=== PATIENT | female | born 2005 | race Two or more races ===

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

== ENCOUNTER 2025-04-20 19:55 | Emergency (ER) | payer MEDICAID, SELFPAY ==
[2025-04-20 19:58] VITALS: BMI 24.4
[2025-04-20 20:08] VITALS: BP 124/79; PULSE 83; RESP 19; TEMP 37.1; O2SAT 99
--- NOTE | 2025-04-20 20:18 | EDNOTE_ITS ---
ED General RME/HPI General Chief complaint: General Adult/Misc Complain Stated complaint: SORE THROAT, RUNNY NOSE, CHEST AREA PAIN Time Seen by Provider: 04/20/25 20:05 Arrival date/time: 04/20/25 19:55 RME / HPI RME / HPI narrative: 20-year-old female presents to the ER after being referred here by her primary doctor to rule out a pulmonary embolism as she has been having pleuritic right sided chest pain and shortness of breath for 3 days. Patient thought that it was related to her working out so she ignored it. Patient is a smoker and endorses that she had a medically induced in February of this year but does not take OCPs currently. Denies any nausea, vomiting, recent travel, surgeries, immobilizations, history of leg swelling or blood clots. Family history: No family history of early cardiac disease Social history: No drugs or alcohol Related Data Previous Rx's ?Medication ?Instructions ?Recorded pantoprazole 40 mg tablet,delayed 40 mg PO QDAY #20 ta bs 12/10/24 release (Protonix) Allergies Allergy/AdvReac Type Severity Reaction Status Date / Time No Known Allergies Allergy Mild NKA Uncoded 12/10/24 13:26 ED Exam Narrative Physical exam: Constitutional: Patient alert and oriented. Well appearing. No acute distress. Not toxic appearing. Head: Normocephalic, atraumatic. Eyes: Periorbital regions bilaterally normal to inspection. Conjunctiva clear bilaterally. Sclera anicteric bilaterally. Pupils equal, round, reactive to light bilaterally. Extraocular movements intact bilaterally. Mouth/Throat: Mucous membranes moist. No stridor or muffled voice. No trismus. Handling secretions without difficulty. Airway widely patent. Neck: Supple. Trachea midline. No JVD. No nuchal rigidity. Normal range of motion. Respiratory: Normal effort. No accessory muscle use or respiratory distress. Lungs clear to auscultation bilaterally without rhonchi, wheezes, or crackles. Positive right posterior axillary line tenderness adjacent to 7,8,9 intercostal spaces. Cardiovascular: RRR. Normal S1/S2. No murmurs or rubs. Radial pulses intact bilaterally. Abdomen: Soft. Non-distended. Non-tender throughout. No pulsatile mass. No guarding or rebound. Negative Redd?s sign. Negative McBurney?s point tenderness. Negative Rovsing?s. Back: No midline tenderness or step-offs. No CVA tenderness to palpation bilaterally. Positive right parathoracic tenderness to palpation. Upper Extremities: No gross deformities. Lower Extremities: No gross deformities. No edema or calf tenderness. Neuro: Speech normal. No gross motor or sensory deficits to upper or lower extremities bilaterally. GCS 15. CN II?XII grossly intact. Skin: Warm, dry, normal color. Psych: Normal affect. Cooperative. Normal insight. Course Quality Measures none Orders Category Date Time Status CT Screening NOW Care 04/20/25 21:49 Active Continuous EKG monitoring NOW Care 04/20/25 20:22 Active Continuous Pulse Oximetry NOW Care 04/20/25 20:22 Active EKG (ED ONLY) *Do not use* NOW Care 04/20/25 20:22 Completed Insert IV NOW Care 04/20/25 21:[address] angio chest Stat Exams 04/20/25 21:49 Completed EKG (ED Only) Stat Exams 04/20/25 20:22 Draft XR chest 2V Stat Exams 04/20/25 20:22 Completed B-Type Natriuretic Peptide Stat Lab 04/20/25 20:45 Completed CBC Stat Lab 04/20/25 20:45 Completed Comprehensive Metabolic Panel Stat Lab 04/20/25 20:45 Completed D-Dimer Stat Lab 04/20/25 20:45 Completed HCG,Qualitative Serum Stat Lab 04/20/25 20:45 Completed Lipase Stat Lab 04/20/25 20:45 Completed Urinalysis Stat Lab 04/20/25 20:49 Completed Ketorolac Inj [Toradol Inj] Med 04/20/25 23:50 Discontinued 30 mg IVP X1 ONE Vital Signs Vital signs: Vital Signs Temperature 98.7 F 04/20/25 20:08 Pulse Rate 83 04/20/25 20:08 Respiratory Rate 19 04/20/25 20:08 Blood Pressure 124/79 04/20/25 20:08 Pulse Oximetry (%) 99 04/20/25 20:08 Oxygen Delivery Method Room Air 04/20/25 20:08 PROCEDURES: EKG Interpretation #1: Date of EK04/21/25 Rate: 87 Interpretation: Interpreted by me EKG Impression: Normal axis Additional EKG comment: QTc 412, incomplete right bundle branch block, no ST elevation, normal sinus rhythm Discharge Plan Plan Patient Disposition: HOME (Self Care) Patient condition on transfer: Stable Prescriptions/Referrals Prescriptions/Med Rec: No Action pantoprazole [Protonix] 40 mg tablet,delayed release (DR/EC) 40 mg PO QDAY Qty: 20 0RF Referrals: Ana M Kellogg NETWORK SECURITY ADMINISTRATOR [Primary Care Provider] - In 1 week Problem List Clinical Impression: Chest pain Patient/Caregiver Discharge Instructions Education Materials: ED Chest Pain, Uncertain Cause Additional Instructions: Follow up with your primary medical doctor within 24 hours. Return to the Emergency Room immediately for any new, worsening, continuing symptoms or any concerns at all. Return to the Emergency Room within 24 hours if you are unable to follow up with your primary medical doctor within 24 hours. Print Language: Gambian Stand Alone Forms: [employer] Award Info., Patient Portal Info Letter PA/RJ Supervising Physician ESPERANZA/RJ Supervising Physician: Dr. Jean Claude ESPINOZA Narrative MDM hospital course (for use when minimal MDM required): MDM The patient presents with chest pain. Differential diagnosis includes musculoskeletal chest pain, GERD, bronchial pleurisy, costochondritis, and thoracic radiculopathy. EKG without acute ischemia or arrhythmia Lab work notable for a moderate microcytic microchromic anemia with a hemoglobin of 9.4, hematocrit of 30.6 likely of chronic disease, thrombocytosis with a platelet count of 471, D-dimer moderately elevated at 1030 ng, corrected calcium minimally elevated 10.3, Alb phos minimally elevated 123 however remainder of LFTs including lipase and total bilirubin within normal limits and doubt acute hepatobiliary obstruction additionally patient without right upper quadrant tenderness, BNP negative, UA negative Chest x-ray without acute cardiopulmonary abnormality that has No CTA negative Less likely etiologies include: PE: D-dimer was positive however CTA negative and pain was reproducible ACS: HEART Score low risk, suggesting low probability of major adverse cardiac event in the next 6 weeks despite not having a troponin Aortic Dissection: Unlikely given palpable pulses, warm extremities bilaterally, and no radiation of pain. Tamponade: Unlikely given absence of hypotension, muffled heart sounds, JVD, friction rub, narrow pulse pressure ?30, low-voltage EKG, or enlarged cardiac silhouette. Endocarditis: Unlikely as no Gonzáles criteria present (Blue spots, splinter hemorrhages, Osler nodes). CHF: Unlikely given no JVD, peripheral edema, or orthopnea. The patient is clinically well-appearing and stable. Evaluation today does not suggest cardiac ischemia, pulmonary embolism, aortic dissection, or other life- threatening etiology. These diagnoses were considered and excluded clinically and with appropriate studies. Nonetheless, it is understood by both patient and provider that no evaluation can entirely exclude such conditions. Admission was considered but is not indicated based on today?s evaluation and low-risk stratification. The patient is strongly encouraged to follow up with their PMD and/or racing secretary and handicapper within the next 1-2 days. Strict ER return p recautions advised for any continued, worsening, or new symptoms or any concerns at all. At the time of reassessment prior to discharge, the patient remains alert and oriented ?3 with GCS 15. Vitals are normal, pain is controlled, and the patient is tolerating oral intake without nausea or vomiting. The patient is agreeable to discharge and verbalizes understanding of the diagnosis, studies, treatment plan, medications (including side effects/precautions), and strict ER return precautions as discussed in the ED. All concerns were addressed, and the patient is comfortable with the plan. Clinical Information Provided by: patient Medical Records reviewed None Medication Administration(s) Medication Administration History Discontinued Medications Ketorolac Tromethamine (Ketorolac Inj 30 Mg/Ml Vial) 30 mg IVP X1 ONE Stop: 04/20/25 23:51 Last Admin: 04/21/25 00:10 Dose: 30 mg Documented By: CRISTINE
--- NOTE | 2025-04-20 20:22 | EKG_ITS ---
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
--- NOTE | 2025-04-20 20:22 | XR_ITS ---
EXAMINATION: PA lateral chest 2 views TECHNIQUE: Upright PA lateral chest 2 views Date and time: April 20, 2025, 2030 hours INDICATIONS: Pleuritic chest pain shortness of breath beginning 3 days ago FINDINGS: Normal heart size Lungs are clear. Intact osseous structures IMPRESSION: No active disease
[2025-04-20 21:18] LABS: Collection Type, Urine Voided
[2025-04-20 21:22] LABS: Basophils # (Auto) 0.1 Thou/mm3 (0.0-0.2); Basophils % (Auto) 1 % (0-2.5); Eosinophils # (Auto) 0.1 Thou/mm3 (0.0-0.5); Eosinophils % (Auto) 1 % (0-10); Hematocrit 30.6 % (36.0-46.0); Hemoglobin 9.4 g/dL (12.0-16.0); Immature Granulocytes Auto 0.02 Thou/mm3 (0.00-0.00); Lymphocytes # (Auto) 1.2 Thou/mm3 (1.0-4.8); Lymphocytes % (Auto) 13 % (10-50); Mean Corpuscular HGB Conc 30.7 g/dl (31.0-37.0); Mean Corpuscular Hemoglobin 23.1 pg (25.0-35.0); Mean Corpuscular Volume 75 fL (80-100); Monocytes # (Auto) 0.6 Thou/mm3 (0.0-0.8); Monocytes % (Auto) 7 % (0-12); Neutrophils # (Auto) 7.2 Thou/mm3 (1.8-7.7); Neutrophils % (Auto) 78 % (37-80); Nucleated Red Blood Cell # 0.00 Thou/mm3 (0.00-0.00); Nucleated Red Blood Cell % 0 /100 WBC (0); Platelet Count 471 Thou/mm3 (140-440); RDW Standard Deviation 49.0 fL (36.4-46.3); Red Blood Count 4.07 Miln/mm3 (4.00-5.20); White Blood Count 9.2 Thou/mm3 (4.5-11.0)
[2025-04-20 21:28] LABS: Bilirubin,Urine Negative (Negative); Blood,Urine Negative (Negative); Calcium Oxalate Crystals,Urine Rare; Clarity,Urine Clear (Clear/Hazy); Color,Urine Yellow (Lt Yel-Yel); Glucose, Urine Negative (Negative); Ketones,Urine 1+ (Negative); Leukocyte Esterase,Urine Negative (Negative); Nitrite,Urine Negative (Negative); PH,Urine 6.0 (5.0-7.0); Protein,Urine 1+ (Neg - Trace); RBC,Urine 3 /hpf (0-3); Specific Gravity,Urine 1.034 (1.001-1.035); Squamous Epithelial Cell,Urine 5 /hpf (0-5); Urobilinogen,Urine 2.0 mg/dL (0.0-1.0); WBC,Urine 4 /hpf (0-5)
[2025-04-20 21:41] LABS: D-Dimer 1030 ng/mL (<600)
[2025-04-20 21:49] LABS: B-Type Natriuretic Peptide < 20 pg/mL (0-100)
--- NOTE | 2025-04-20 21:49 | XR_ITS ---
Examination: CTA chest with intravenous contrast 2-D reconstructions 3-D reconstructions, vascular Date and time of exam: April 20, 2025, 11:13 p.m. INDICATIONS: Chest pain pleuritic chest pain shortness of breath 3 days CTDI: vol (mGy) 574 DLP: (mGycm) 218 Technique: Multiple axial sections of the thorax have been obtained. 3 mm slice thickness, from below the hemidiaphragms to above the apices of the lungs. Mediastinal and lung density settings have been obtained. 2-D sagittal and coronal reconstructions. 3-D angiographic renderings, 3-D volume renderings, 3D post processing, vascular maximum intensity projections obtained. Contrast administered is 100 cc Isovue-370. Low dose protocols were performed. One or more of the following dose reduction techniques were used; automated exposure control, adjustment of the mA and/or KV according to patient size, use of iterative reconstruction technique. Findings: No thoracic aortic aneurysmal dilatation or dissection Pulmonary artery segments are not enlarged No pulmonary artery filling defects No mediastinal lymphadenopathy No pneumonia, pulmonary edema or pleural disease No visualized liver or splenic lesion Contracted gallbladder No hydronephrosis Visualized abdominal aorta intact Osseous structures intact IMPRESSION: No thoracic aortic aneurysmal dilatation or dissection Negative for pulmonary artery emboli No pneumonia, pulmonary edema or pleural disease
[2025-04-20 21:50] LABS: HCG,Qualitative Serum Negative
[2025-04-20 21:58] LABS: Alanine Aminotransferase 14 U/L (10-49); Albumin, Serum 5.4 gm/dL (3.5-5.0); Albumin/Globulin Ratio 1.7 (1.2-2.2); Alkaline Phosphatase 123 U/L (46-116); Anion Gap 13 (7-16); Aspartate Amino Transferase 18 U/L (0-34); BUN/Creatinine Ratio 27 Ratio (12-20); Bilirubin,Total 0.4 mg/dL (0.3-1.2); Blood Urea Nitrogen 16 mg/dL (9-23); Calcium 10.3 mg/dL (8.3-10.6); Calcium (Corrected) 10.3 mg/dL (8.5-10.1); Carbon Dioxide 25.4 mMol/L (20.0-31.0); Chloride 103 mMol/L (98-107); Creatinine (Component) 0.6 mg/dL (0.6-1.3); Estimated Creatinine Clearance 123.7 mL/min (>60); Globulin 3.1 gm/dL (2.3-3.5); Glucose 91 mg/dL (74-106); Lipase 29 U/L (12-53); Osmolality,Calculated 282 (275-295); Potassium 3.6 mMol/L (3.4-5.1); Sodium 141 mMol/L (136-145); Total Protein 8.5 gm/dL (5.7-8.2); eGFR > 60 See Note
[2025-04-21] MEDS: KETOROLAC INJ 30 MG/ML VIAL IVP (00:10)
[2025-04-21 00:51] VITALS: BP 113/69; PULSE 75; RESP 18; TEMP 37.1; O2SAT 99
== END 2025-04-21 00:52 | disposition home or self-care (01) ==
PROVIDERS: Physician Assistant; Emergency Provider Emergency Medicine; PCP Nurse Practitioner Family
DX: R07.81 Pleurodynia (principal); R06.02 Shortness of breath; I45.10 Unspecified right bundle-branch block
CPT/HCPCS: 36415; 71046; 71275; 80053; 81001; 83690; 83880; 84703; 85025; 85379; 93005; 96374; 99283; A4649; J1885; Q9967